=== PATIENT | male | born 1990 | race Two or more races ===

== ENCOUNTER 2022-05-12 13:54 | Inpatient (IN) | payer OTHER, SELFPAY ==
--- NOTE | 2022-05-12 | ECG_ITS ---
Test Reason : antipsyc meds Blood Pressure : / mmHG Vent. Rate : 093 BPM Atrial Rate : 093 BPM P-R Int : 158 ms QRS Dur : 074 ms QT Int : 336 ms P-R-T Axes : 060 030 036 degrees QTc Int : 417 ms Normal sinus rhythm Normal ECG No previous ECGs available Referred By: Generic ED Physician Electronically Signed By:AIDA CARDONA MD
[2022-05-12 13:57] VITALS: BP 140/90; BP 157/79; PULSE 118; PULSE 120; RESP 18; TEMP 37.1; O2SAT 98; BMI 29.5
[2022-05-12 14:10] VITALS: BP 157/79; PULSE 118; RESP 18; TEMP 37.1; O2SAT 98
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
[2022-05-12 14:31] LABS: MANUAL DIFF FLAG NO
--- NOTE | 2022-05-12 14:32 | PC.NURSE ---
Call made to [facility] pharmacy on [facility] to confirm meds and dosages. Med rec completed by phone w/ EJ at 1430.
[2022-05-12 14:34] LABS: Basophils Percent Auto 0.1 % (0-2); Eosinophils Percent Auto 0.3 % (0-4); Hematocrit 38.3 % (42.0-52.0); Hemoglobin 13.4 g/dl (14.0-18.0); Imm Gran Abs Auto 0.02 X10*3/uL (0.00-0.03); Imm Gran Pct Auto 0.3 % (0.0-0.4); Lymphocytes Absolute Auto 1.7 X10*3/uL (1.2-4.9); Mean Corpuscular Volume 88.7 fL (80.0-98.0); Mean Platelet Volume 8.3 fL (9.4-12.4); Monocytes Absolute Auto 0.6 X10*3/uL (0.1-1.2); Monocytes Percent Auto 8.2 % (2-11); Neutrophils Absolute Auto 5.1 x10*3/uL (2.0-8.3); Neutrophils Percent Auto 68.1 % (45-73); Platelet Count 256 X10*3/uL (160-400); Red Blood Count 4.32 X10*6/uL (4.60-5.80); Red Cell Distribution Width 12.7 % (11.0-16.0); White Blood Count 7.4 X10*3/uL (4.8-10.8)
[2022-05-12 14:44] LABS: Appearance Urine Clear; Color Urine Yellow; Glucose Urine UA Negative (Negative); Leukocyte Esterase Urine Negative (Negative); Nitrite Urine Negative (Negative); Urine Blood Negative (Negative); Urine Ketones Negative (Negative); Urine Protein Negative (Neg-Trace)
[2022-05-12 14:47] LABS: Ethanol < 10 mg/dL
[2022-05-12 14:48] LABS: Alanine Aminotransferase 13 U/L (0-40); Albumin Level 4.4 g/dL (3.5-5.0); Alkaline Phosphatase 130 U/L (39-117); Anion Gap 13 (12-20); Aspartate Amino Transferase 20 U/L (5-37); Bilirubin Direct < 0.2 mg/dL (0.0-0.5); Bilirubin Total 0.5 mg/dL (0.0-1.0); Blood Urea Nitrogen 7 mg/dL (9-16); Calcium 9.1 mg/dL (8.4-10.2); Carbon Dioxide 24 mmol/L (22-29); Chloride 105 mmol/L (96-108); Creatinine Clr Calc Pharmacy 142.8; Estimated Glomerular Filt Rate > 60; Glucose Random 102 mg/dL (60-115); Lipase 7 U/L (8-78); Potassium 3.7 mmol/L (3.3-5.1); Sodium 138 mmol/L (135-145); Total Protein 7.7 g/dL (6.5-8.0)
[2022-05-12 14:54] LABS: Amphetamine Screen Urine Not Detected (Not Detect); Barbiturates, Urine Not Detected (Not Detect); Benzodiazepines Screen Urine Not Detected (Not Detect); Cannabinoid Screen Urine POSITIVE (Not Detect); Cocaine Screen Urine Not Detected (Not Detect); Fentanyl, urine Not Detected (Not Detect); Opiate Screen Urine Not Detected (Not Detect); Phencyclidine Screen Urine Not Detected (Not Detect)
[2022-05-12 14:59] LABS: COVID-19 Test Negative (Negative); IDNOW Serial# 55D5AD1C
--- NOTE | 2022-05-12 15:11 | ED_ITS ---
HPI - Psych General Chief Complaint: Psychiatric Symptoms Stated Complaint: SI/HI Time Seen by Provider: 05/12/22 15:05 Source: patient Limitations: no limitations History of Present Illness HPI Narrative: 32-year-old male with previous psychiatric history presents for psychiatric evaluation. Patient reports depression. He uses this is a chronic issue. He does have suicidal ideation but no plan. He has had a plan and attempts in the past. He reports overall feeling safe from others at home. He occasionally drinks alcohol but denies any significant alcohol abuse or drug abuse. Patient also has signs and symptoms of anxiety. Patient described his symptoms as severe. There is no clear relieving features. He has had psychiatric hospitalizations but feel that they are not helping. MD complaint: suicidal ideation, feels depressed and anxiety Onset (ago): month(s) Duration: constant History of same: Yes Relieving factors: none Exacerbating factors: none Associated psychiatric symptoms: depression and suicidal ideation If self harm: admits thoughts of self harm Related Data Home Medications Medication Instructions Recorded Confirmed clonidine HCl 0.3 mg tablet 1 tab PO BID 05/12/22 05/12/22 doxepin 100 mg capsule 100 mg PO BEDTIME 05/12/22 05/12/22 escitalopram oxalate 5 mg tablet 1 tab QAM 05/12/22 05/12/22 melatonin 10 mg tablet 10 mg PO BEDTIME 05/12/22 05/12/22 nicotine (polacrilex) 2 mg gum 1 ea PO Q2H PRN Smoking Cessation 05/12/2212/24 nicotine 14 mg/24 hr daily 1 patch topical DAILY 05/12/22 05/12/22 transdermal patch Allergies Allergy/AdvReac Type Severity Reaction Status Date / Time shrimp Allergy Anaphylaxis Verified 05/12/22 14:23 Review of Systems Review of Systems: CONSTITUTIONAL: Denies weight loss, fever and chills. HEENT: Denies changes in vision and hearing. RESPIRATORY: Denies SOB and cough. CV: Denies palpitations no CP. GI: Denies abdominal pain, nausea, vomiting and diarrhea. : Denies dysuria and urinary frequency. MSK: Denies myalgia and joint pain. SKIN: Denies rash and pruritus. NEUROLOGICAL: Denies headache and syncope. PSYCHIATRIC: + recent changes in mood. + anxiety and depression. All other ROS are negative unless in HPI PMFSH Past Medical History Medical History Anxiety Depression Social History Social History Alcohol intake: unknown Smoked in Last 30 Days: Yes Use of substances other than those prescribed or required for medical reasons: Unknown Physical Exam Vital Signs: Vital Signs: Last Vital Signs Temp 98.8 F 05/12/22 14:10 Pulse 118 H 05/12/22 14:10 Resp 18 05/12/22 14:10 BP 157/79 H 05/12/22 14:10 Pulse Ox 98 05/12/22 14:10 O2 Del Method 05/12/22 14:10 BMI result Body Mass Index 29.5 GEN: Well developed, no acute distress, alert, oriented HEENT: Normocephalic, atraumatic, normal external ears, nose appears normal, no oropharyngeal edema or exudates Eyes: Normal to appearance Neck: Supple, no lymphadenopathy Respiratory: Talks in complete sentences, no respiratory distress, clear to auscultation bilaterally Cardiovascular: Regular rate and rhythm, no murmurs rubs or gallops Abdomen: Soft, nontender, nondistended, no guarding, no rebound Back: No CVA tenderness Extremities: No clubbing cyanosis or edema Neurologic: No focal neurologic deficits, cranial nerves 2-12 intact, strength is 5/5 bilaterally, gait normal Skin: No rash Course Course Course Narrative: 32-year-old male with history of anxiety depression presents with suicidal ideation. Offers no plan. On my evaluation, patient has poor eye contact was tearful and slightly anxious appearing. He offered no acute medical complaints. Patient will be evaluated by our crisis team. Disposition will attend their input. Reevaluation(s) Reevaluation #1: Patient is medically clear for psychiatric evaluation and possible admission Time: 15:15 Reevaluation #2: Patient will be signed out to the oncoming doctor, Dr. Mary pending disposition. Time: 16:01 Medical Decision Making Medical Decision Making MDM Narrative: 32-year-old male presents with depression, anxiety and passive suicidal ideation. Patient offers no plan at this time. Is not homicidal. He feels safe from harm to others. Patient will need medical clearance a crisis evaluation. Patient will be placed in our Behavioral Health Unit. Differential Diagnosis Differential Diagnoses: The differential diagnosis associated with the presentation includes (Depression, anxiety, suicidal ideation, adjustment reaction, personality disorder, mood disorder NOS) Admission/Observation Consideration of admission/observation: Escalation of care including adm ission/observation considered Consult Healthcare Provider Management of the patient was discussed with: Behavioral Health Provider Lab Data [facility] Lab Attestation statement: I reviewed the patient's lab results. 05/12/22 14:27 05/12/22 14:27 Labs: Lab Results 05/12/22 05/12/22 05/12/22 Range/Units 14:27 14:27 14:27 WBC 7.4 (4.8-10.8) X10*3/uL RBC 4.32 L (4.60-5.80) X10*6/uL Hgb 13.4 L (14.0-18.0) g/dl Hct 38.3 L (42.0-52.0) % MCV 88.7 (80.0-98.0) fL MCH 31.0 (27.0-33.0) pg MCHC 35.0 (31.0-36.0) g/dl RDW 12.7 (11.0-16.0) % Plt Count 256 (160-400) X10*3/uL MPV 8.3 L (9.4-12.4) fL Immature Gran % (Auto) 0.3 (0.0-0.4) % Neut % (Auto) 68.1 (45-73) % Lymph % (Auto) 23.0 (20-40) % [place] % (Auto) 8.2 (2-11) % Eos % (Auto) 0.3 (0-4) % Baso % (Auto) 0.1 (0-2) % Lymph # (Auto) 1.7 (1.2-4.9) X10*3/uL [place] # (Auto) 0.6 (0.1-1.2) X10*3/uL Eos # (Auto) 0.0 (0.0-0.4) X10*3/uL Baso # (Auto) 0.0 (0.0-0.2) X10*3/uL Abs Immat Gran (auto) 0.02 (0.00-0.03) X10*3/uL Absolute Neuts (auto) 5.1 (2.0-8.3) x10*3/uL Absolute Nucleated RBC 0.000 (0.0-0.012) X10*3/uL Nucleated RBC % (auto) 0.0 (0.0-0.2) /100WBC Sodium 138 (135-145) mmol/L Potassium 3.7 (3.3-5.1) mmol/L Chloride 105 (96-108) mmol/L Carbon Dioxide 24 (22-29) mmol/L Anion Gap 13 (12-20) BUN 7 L (9-16) mg/dL Creatinine 0.86 (0.5-1.4) mg/dL Estim Creat Clear Calc 142.8 Estimated GFR > 60 Random Glucose 102 (60-115) mg/dL Calcium 9.1 (8.4-10.2) mg/dL Total Bilirubin 0.5 (0.0-1.0) mg/dL Direct Bilirubin < 0.2 (0.0-0.5) mg/dL AST 20 (5-37) U/L ALT 13 (0-40) U/L Alkaline Phosphatase 130 H (39-117) U/L Total Protein 7.7 (6.5-8.0) g/dL Albumin 4.4 (3.5-5.0) g/dL Lipase 7 L (8-78) U/L Urine Color Urine Appearance Urine pH (5.0-9.0) Ur Specific [place] (1.005-1.025) Urine Protein (Neg-Trace) mg/dL Urine Glucose (UA) (Negative) mg/dL Urine Ketones (Negative) mg/dL Urine Blood (Negative) Urine Nitrite (Negative) Ur Leukocyte Esterase (Negative) Urine Opiates Screen (Not Detect) Urine Fentanyl Screen (Not Detect) Ur Barbiturates Screen (Not Detect) Ur Phencyclidine Scrn (Not Detect) Ur Amphetamines Screen (Not Detect) U Benzodiazepines Scrn (Not Detect) Urine Cocaine Screen (Not Detect) U Marijuana (THC) Screen (Not Detect) Ethyl Alcohol mg/dL COVID-19 ([facility]) Negative (Negative) COVID-19 Clin Com See Note 05/12/22 05/12/22 05/12/22 Range/Units 14:27 14:34 14:34 WBC (4.8-10.8) X10*3/uL RBC (4.60-5.80) X10*6/uL Hgb (14.0-18.0) g/dl Hct (42.0-52.0) % MCV (80.0-98.0) fL MCH (27.0-33.0) pg MCHC (31.0-36.0) g/dl RDW (11.0-16.0) % Plt Count (160-400) X10*3/uL MPV (9.4-12.4) fL Immature Gran % (Auto) (0.0-0.4) % Neut % (Auto) (45-73) % Lymph % (Auto) (20-40) % [place] % (Auto) (2-11) % Eos % (Auto) (0-4) % Baso % (Auto) (0-2) % Lymph # (Auto) (1.2-4.9) X10*3/uL [place] # (Auto) (0.1-1.2) X10*3/uL Eos # (Auto) (0.0-0.4) X10*3/uL Baso # (Auto) (0.0-0.2) X10*3/uL Abs Immat Gran (auto) (0.00-0.03) X10*3/uL Absolute Neuts (auto) (2.0-8.3) x10*3/uL Absolute Nucleated RBC (0.0-0.012) X10*3/uL Nucleated RBC % (auto) (0.0-0.2) /100WBC Sodium (135-145) mmol/L Potassium (3.3-5.1) mmol/L Chloride (96-108) mmol/L Carbon Dioxide (22-29) mmol/L Anion Gap (12-20) BUN (9-16) mg/dL Creatinine (0.5-1.4) mg/dL Estim Creat Clear Calc Estimated GFR Random Glucose (60-115) mg/dL Calcium (8.4-10.2) mg/dL Total Bilirubin (0.0-1.0) mg/dL Direct Bilirubin (0.0-0.5) mg/dL AST (5-37) U/L ALT (0-40) U/L Alkaline Phosphatase (39-117) U/L Total Protein (6.5-8.0) g/dL Albumin (3.5-5.0) g/dL Lipase (8-78) U/L Urine Color Yellow Urine Appearance Clear Urine pH 6.0 (5.0-9.0) Ur Specific [place] 1.020 (1.005-1.025) Urine Protein Negative (Neg-Trace) mg/dL Urine Glucose (UA) Negative (Negative) mg/dL Urine Ketones Negative (Negative) mg/dL Urine Blood Negative (Negative) Urine Nitrite Negative (Negative) Ur Leukocyte Esterase Negative (Negative) Urine Opiates Screen Not Detected (Not Detect) Urine Fentanyl Screen Not Detected (Not Detect) Ur Barbiturates Screen Not Detected (Not Detect) Ur Phencyclidine Scrn Not Detected (Not Detect) Ur Amphetamines Screen Not Detected (Not Detect) U Benzodiazepines Scrn Not Detected (Not Detect) Urine Cocaine Screen Not Detected (Not Detect) U Marijuana (THC) Screen POSITIVE H (Not Detect) Ethyl Alcohol < 10 mg/dL COVID-19 ([facility]) (Negative) COVID-19 Clin Com Independent Interpretation I performed an independent interpretation of an: EKG Interpretation: Normal sinus rhythm heart rate 93, normal intervals, no acute ST elevations depressions External Record Review External record reviewed: Inpatient record and Outpatient record No records available Tests considered The following testing was considered but not selected: CT scan head Prescription Management I considered prescription management with: Other (Anxiolytic ) Discharge Plan Discharge Clinical Impression: Depression Patient Disposition: Still a Patient Prescriptions: No Action nicotine 14 mg/24 hr patch 24 hour 1 patch topical DAILY nicotine (polacrilex) 2 mg gum 1 ea PO Q2H PRN (Reason: Smoking Cessation) clonidine HCl 0.3 mg tablet 1 tab PO BID doxepin 100 mg Capsule 100 mg PO BEDTIME escitalopram oxalate 5 mg tablet 1 tab QAM melatonin 10 mg Tablet 10 mg PO BEDTIME Interventions: [place]-Suicide Risk Severity Scale Last Done: 05/12/22 14:10
[2022-05-12 19:25] VITALS: BP 128/74; PULSE 93; RESP 17; TEMP 37.1; O2SAT 100
[2022-05-12] MEDS: Doxepin HCl 25 MG CAPSULE 100 MG PO (20:38)
[2022-05-12] MEDS: Melatonin 3 MG TABLET 9 MG PO (20:38)
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
--- NOTE | 2022-05-13 | EEG_ITS ---
This is a 16 channel EEG with an EKG lead. The patient is reported awake during the tracing. Background EEG rhythm is 8 to 10 hertz low amplitude posteriorly and low amplitude fast anteriorly. Photic stimulation does not produce any significant abnormality. Hyperventilation is not performed. Cardiac lead does not reveal any significant abnormality. No sharp wave spikes or paroxysmal tendencies noted. IMPRESSION: Unremarkable EEG. MD DIANE Dick/JENELLE / [phone]
[2022-05-13 08:03] LABS: Estimated Average Glucose 108 mg/dL; Hemoglobin A1c % 5.4 %
[2022-05-13 08:13] LABS: Cholesterol 136 mg/dL; HDL Cholesterol 30 mg/dL; LDL Cholesterol Calculated 84 mg/dl; Magnesium 2.2 mg/dL (1.6-2.6); Triglycerides 113 mg/dL
[2022-05-13 08:41] LABS: Folate 15.9 ng/mL (> or = 4.0); Free T4 (Free Thyroxine) 0.93 ng/dL (0.71-1.85); Thyroid Stimulating Hormone 1.52 uIU/mL (0.32-4.0); Vitamin B12 157 pg/mL (200-900)
[2022-05-13] MEDS: cloNIDine HCL 0.1 MG TABLET 0.3 MG PO ×2 (09:06→20:41)
[2022-05-13] MEDS: Escitalopram Oxalate 5 MG TABLET PO (09:06)
[2022-05-13] MEDS: Nicotine 14 MG PATCH.TD24 TRANSDERMA (09:08)
[2022-05-13 09:12] VITALS: BP 134/65; PULSE 110; RESP 16; TEMP 36.7; O2SAT 96
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
[2022-05-13 20:40] VITALS: BP 143/80; PULSE 118; RESP 14; TEMP 37.2
[2022-05-13] MEDS: Doxepin HCl 25 MG CAPSULE 100 MG PO (20:41)
[2022-05-13] MEDS: Melatonin 3 MG TABLET 9 MG PO (20:41)
[2022-05-13] MEDS: Divalproex Sodium 250 MG TABLET.DR PO (20:41)
[2022-05-13] MEDS: Cyanocobalamin (Vitamin B-12) 100 MCG TABLET PO (20:42)
[2022-05-14 08:00] VITALS: BP 144/65; PULSE 99; TEMP 36.8; O2SAT 100
[2022-05-14] MEDS: cloNIDine HCL 0.1 MG TABLET 0.3 MG PO ×2 (09:18→20:44)
[2022-05-14] MEDS: Escitalopram Oxalate 10 MG TABLET PO (09:19)
[2022-05-14] MEDS: Nicotine 14 MG PATCH.TD24 TRANSDERMA (09:19)
[2022-05-14] MEDS: Divalproex Sodium 250 MG TABLET.DR PO ×2 (09:19→20:45)
[2022-05-14] MEDS: Multivitamin TABLET 1 TAB PO (09:20)
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
[2022-05-14 20:30] VITALS: BP 127/79; PULSE 110; TEMP 36.3; O2SAT 100
[2022-05-14] MEDS: Doxepin HCl 25 MG CAPSULE 100 MG PO (20:45)
[2022-05-14] MEDS: Melatonin 3 MG TABLET 9 MG PO (20:45)
[2022-05-15 06:00] VITALS: BP 119/67; PULSE 105; RESP 16; TEMP 36.7; O2SAT 99
[2022-05-15] MEDS: cloNIDine HCL 0.1 MG TABLET 0.3 MG PO ×2 (08:22→20:28)
[2022-05-15] MEDS: Escitalopram Oxalate 10 MG TABLET PO (08:22)
[2022-05-15] MEDS: Multivitamin TABLET 1 TAB PO (08:22)
[2022-05-15] MEDS: Divalproex Sodium 250 MG TABLET.DR PO ×2 (08:22→20:29)
[2022-05-15] MEDS: Nicotine 14 MG PATCH.TD24 TRANSDERMA (08:27)
--- NOTE | 2022-05-15 11:55 | PC.NURSE ---
Pt requesting to be discharged. 3 day notice dated 05/14/22, completed in pencil and not witnessed found in pt's chart. Pt approached with new 3 day notice, willing to sign, but dated it 05/14/22. RN who witnessed signed and dated document for 05/15/22. Placed both copies in pt's chart. All required parties notified of 3 day notice.
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
[2022-05-15 18:00] VITALS: BP 117/70; PULSE 98; TEMP 36.8; O2SAT 96
[2022-05-15] MEDS: Doxepin HCl 25 MG CAPSULE 100 MG PO (20:28)
[2022-05-15] MEDS: Melatonin 3 MG TABLET 9 MG PO (20:28)
[2022-05-16 06:00] VITALS: BP 138/65; PULSE 104; RESP 16; TEMP 36.1; O2SAT 100
[2022-05-16] MEDS: Multivitamin TABLET 1 TAB PO (09:08)
[2022-05-16] MEDS: Escitalopram Oxalate 10 MG TABLET PO (09:08)
[2022-05-16] MEDS: cloNIDine HCL 0.1 MG TABLET 0.3 MG PO (09:08)
[2022-05-16] MEDS: Divalproex Sodium 250 MG TABLET.DR PO (09:08)
[2022-05-16] MEDS: Nicotine 14 MG PATCH.TD24 TRANSDERMA (09:08)
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
== END 2022-05-16 15:21 | disposition home or self-care (01) | DRG 754 ==
LOC: HO.ED 19:03 → HO.PM5 19:08
PROVIDERS: Admitting Provider Psychiatry & Neurology Psychiatry; Emergency Provider Emergency Medicine; PCP Internal Medicine; Visit Provider Clinical Nurse Specialist Psychiatric/Mental Health, Adult
DX: F32.A Depression, unspecified (principal); R45.851 Suicidal ideations; F17.210 Nicotine dependence, cigarettes, uncomplicated; Z71.6 Tobacco abuse counseling; Z20.822 Contact with and (suspected) exposure to COVID-19; Z79.899 Other long term (current) drug therapy
CPT/HCPCS: 36415; 80053; 80061; 80307; 81003; 82077; 82248; 82607; 82746; 83036; 83690; 83735; 84439; 84443; 85025; 87635; 93005; 95816; 99285